=== PATIENT | female | born 1940 | race Caucasian/White ===

== ENCOUNTER → 2020-07-24 | Outpatient (CLI) | payer MEDICARE ==
[~2020-07-24] MED LIST: ACET325T26 PO; AMLO-150 PO; AMLO2.5T5 PO; AMPI3VIA IV; ENOX40SY4 SQ; FLUC200T4 PO; LEVO500T8 PO; LEVO50TA PO; LEVO50TA5 PO; METH12DI SQ; METR-90 PO; MICA100V4 IV; OXYC10TA6 PO; OXYC5TAB98 PO; SIMV20TA19 PO; TELM40TA7 PO; TELMISARTAN PO; TIZA4TAB2 PO
== END | disposition home or self-care (01) ==
LOC: RAD 12:56
PROVIDERS: ATTEND Surgery
DX: K57.30 Diverticulosis of large intestine without perforation or abscess without bleeding (principal); Z93.2 Ileostomy status
CPT/HCPCS: 74270

== ENCOUNTER → 2020-08-06 | Outpatient (CLI) | payer MEDICARE ==
[~2020-08-06] MED LIST changes: +CETI10TA76 PO; +POTA20TA6 PO; +TELM40TA PO
[2020-08-06 15:07] LABS: BASOPHILS % (AUTO) 1 % (0-1); EOSINOPHILS % (AUTO) 3 % (1-7); LYMPHOCYTES % (AUTO) 29 % (22-44); MEAN CORPUSCULAR HEMOGLOBIN 32.1 pg (27.0-34.8); MEAN CORPUSCULAR HGB CONC 33.2 g/dL (32.4-35.8); MEAN PLATELET VOLUME 8.7 fL (7.4-10.4); MONOCYTES % (AUTO) 7 % (2-9); NEUTROPHILS % (AUTO) 61 % (42-75); PLATELET COUNT 223 x10^3/uL (130-400); RED BLOOD COUNT 3.49 x10^6/uL (3.82-5.3)
[2020-08-06 15:18] LABS: ALANINE AMINOTRANSFERASE 36 U/L (12-78); ALBUMIN 3.4 g/dL (3.4-5.0); ANION GAP 7 mmol/L (5-15); CALCIUM 8.9 mg/dL (8.5-10.1); CHLORIDE 116 mmol/L (98-107); CREATININE 0.94 mg/dL (0.55-1.02)
[2020-08-06 15:21] LABS: ALKALINE PHOSPHATASE 131 U/L (45-117); BILIRUBIN,TOTAL 0.4 mg/dL (0.2-1.0); TOTAL PROTEIN 7.1 g/dL (6.4-8.2)
== END | disposition home or self-care (01) ==
LOC: STAR 14:13
PROVIDERS: ATTEND Surgery
DX: Z01.818 Encounter for other preprocedural examination (principal); Z43.2 Encounter for attention to ileostomy; I25.2 Old myocardial infarction; R94.31 Abnormal electrocardiogram [ECG] [EKG]; Z20.822 Contact with and (suspected) exposure to COVID-19
CPT/HCPCS: 36415; 80053; 85025; 93005; U0003; U0005

== ENCOUNTER 2020-08-11 06:59 | Inpatient (IN) | payer MEDICARE ==
[~2020-08-11] VITALS: Ht 149.9 cm; Wt 73.6 kg
[~2020-08-11 06:59] MED LIST changes: +POTA-143 PO; -POTA20TA6 PO
[2020-08-11] MEDS ORDERED: CHLORHEXIDINE 15 ML UDC PO ONE (08:00)
[2020-08-11] MEDS ORDERED: LACTATED RINGERS 1,000 ML IV SCH (08:00)
[2020-08-11] MEDS ORDERED: MIDAZOLAM 1 MG/ML, 2ML ONE (08:33)
[2020-08-11] MEDS ORDERED: FENTANYL PF 250 MCG/5ML ONE (08:34)
[2020-08-11] MEDS ORDERED: BUPIVACAINE/PF 0.25% ONE (08:38)
[2020-08-11] MEDS ORDERED: EPINEPHRINE 1 MG/ML, 1ML ONE (08:38)
[2020-08-11] MEDS ORDERED: LABETALOL 5MG/ML, 20ML IV PRN (09:00)
[2020-08-11] MEDS ORDERED: PROMETHAZINE 25 MG/ML, 1ML IVPush PRN (09:00)
[2020-08-11] MEDS ORDERED: hydrALAzine 20 MG/ML, 1ML IV PRN (09:00)
[2020-08-11] MEDS ORDERED: ONDANSETRON 2MG/ML, 2ML IVPush PRN (09:00)
[2020-08-11] MEDS ORDERED: METHOCARBAMOL 1,000 MG in DEXTROSE 5% 100 ML IV PRN (09:00)
[2020-08-11] MEDS ORDERED: OXYcodone 5 MG/5 ML ORAL.SOL UDC PO PRN (09:00)
[2020-08-11] MEDS ORDERED: MEPERIDINE/PF 25MG/0.5ML IVPush PRN (09:00)
[2020-08-11] MEDS ORDERED: EPHEDRINE 50 MG/ML, 1ML IVPush PRN (09:00)
[2020-08-11] MEDS ORDERED: ACETAMINOPHEN 325 MG TABLET PO PRN (09:00)
[2020-08-11] MEDS ORDERED: LORazepam 2 MG/ML, 1ML IVPush PRN (09:00)
[2020-08-11] MEDS ORDERED: HYDROmorphone 1 MG/ML, 1ML INJ IVPush PRN (09:00)
[2020-08-11] MEDS ORDERED: VASOPRESSIN 20 UNIT/ML, 1ML ONE (09:24)
[2020-08-11] MEDS ORDERED: EPINEPHRINE 1 MG/ML, 1ML INFIL ONE (09:58)
[2020-08-11] MEDS ORDERED: BUPIVACAINE/PF 0.5% INFIL ONE (09:58)
[2020-08-11] MEDS ORDERED: SUGAMMADEX 200 MG/2 ML IVPush ONE (10:58)
[2020-08-11] MEDS ORDERED: ACETAMINOPHEN 650 MG/20.3 ML UDC ONE (11:07)
[2020-08-11] MEDS ORDERED: FENTANYL PF 100 MCG/2ML ONE ×2 (11:07→11:50)
[2020-08-11] MEDS ORDERED: OXYcodone 5 MG/5 ML ORAL.SOL UDC ONE (11:08)
[2020-08-11] MEDS ORDERED: DEXAMETHASONE 4 MG/ML, 1ML ONE (11:17)
[2020-08-11] MEDS ORDERED: CEFAZOLIN 1,000 MG ONE (11:17)
[2020-08-11] MEDS ORDERED: ONDANSETRON 2MG/ML, 2ML ONE ×2 (11:17→11:39)
[2020-08-11] MEDS ORDERED: SUCCINYLCHOLINE 20 MG/ML, 10ML ONE (11:17)
[2020-08-11] MEDS ORDERED: PROPOFOL 10 MG/ML, 20ML ONE (11:17)
[2020-08-11] MEDS ORDERED: ROCURONIUM 10MG/ML,5ML ONE (11:17)
[2020-08-11] MEDS ORDERED: GLYCOPYRROLATE 0.2MG/1ML, 5ML ONE (11:17)
[2020-08-11] MEDS ORDERED: NEOSTIGMINE 1 MG/ML, 10ML ONE (11:17)
[2020-08-11] MEDS: FENTANYL PF 100 MCG/2ML IV PRN ×4 (11:20→12:57)
[2020-08-11 12:30] VITALS: BP 115/74
[2020-08-11] MEDS: KETOROLAC 30 MG/1 ML IV SCH ×2 (14:39→20:19)
[2020-08-11] MEDS: ACETAMINOPHEN 325 MG TABLET PO SCH ×2 (17:31→23:39)
[2020-08-11] MEDS: OXYcodone IR 5MG TABLET PO PRN ×2 (17:31→23:39)
[2020-08-11] MEDS: LACTATED RINGERS 1,000 ML IV SCH (18:45)
[2020-08-11 20:50] VITALS: BP 102/66
[2020-08-12 00:10] VITALS: BP 99/65
[2020-08-12] MEDS: KETOROLAC 30 MG/1 ML IV SCH ×4 (02:05→22:29)
[2020-08-12 03:55] VITALS: BP 96/63
[2020-08-12 05:34] LABS: BASOPHILS % (AUTO) 1 % (0-1); EOSINOPHILS % (AUTO) 2 % (1-7); LYMPHOCYTES % (AUTO) 20 % (22-44); MEAN CORPUSCULAR HEMOGLOBIN 32.2 pg (27.0-34.8); MEAN CORPUSCULAR HGB CONC 33.1 g/dL (32.4-35.8); MEAN PLATELET VOLUME 8.7 fL (7.4-10.4); MONOCYTES % (AUTO) 10 % (2-9); NEUTROPHILS % (AUTO) 67 % (42-75); PLATELET COUNT 176 x10^3/uL (130-400); RED BLOOD COUNT 2.75 x10^6/uL (3.82-5.3); RED CELL DISTRIBUTION WIDTH 14.1 % (9.6-15.2)
[2020-08-12 05:43] LABS: ANION GAP 4 mmol/L (5-15); CALCIUM 8.2 mg/dL (8.5-10.1); CHLORIDE 113 mmol/L (98-107); CREATININE 0.86 mg/dL (0.55-1.02)
[2020-08-12] MEDS: LEVOTHYROXINE 50 MCG TABLET PO SCH (05:47)
[2020-08-12] MEDS: ENOXAPARIN 40 MG/0.4 ML SQ SCH (05:47)
[2020-08-12] MEDS: OXYcodone IR 5MG TABLET PO PRN (05:47)
[2020-08-12] MEDS: ACETAMINOPHEN 325 MG TABLET PO SCH ×4 (05:47→23:50)
[2020-08-12 06:33] VITALS: BP 100/66
[2020-08-12 08:03] VITALS: BP 95/61
[2020-08-12] MEDS: LOSARTAN 50MG TABLET PO SCH (09:00)
[2020-08-12] MEDS: AMLODIPINE 2.5 MG TABLET PO SCH (09:00)
[2020-08-12] MEDS: LACTATED RINGERS 1,000 ML IV SCH (11:20)
[2020-08-12] MEDS: HYDROmorphone 2MG TABLET PO PRN ×4 (12:39→23:50)
[2020-08-12 12:50] VITALS: BP 103/65
[2020-08-12] MEDS ORDERED: CALCIUM CARBONATE 500 MG TAB.CHEW ONE (15:40)
[2020-08-12] MEDS: CALCIUM CARBONATE 500 MG TAB.CHEW PO PRN (15:44)
[2020-08-12 18:51] VITALS: BP 105/67
[2020-08-12] MEDS: ONDANSETRON 2MG/ML, 2ML IV PRN (20:58)
[2020-08-12] MEDS: FENTANYL PF 100 MCG/2ML IV PRN (20:58)
[2020-08-13] MEDS: LACTATED RINGERS 1,000 ML IV SCH (00:51)
[2020-08-13 01:26] VITALS: BP 93/60
[2020-08-13] MEDS: CALCIUM CARBONATE 500 MG TAB.CHEW PO PRN ×2 (02:48→08:19)
[2020-08-13] MEDS: HYDROmorphone 2MG TABLET PO PRN (03:37)
[2020-08-13] MEDS: ONDANSETRON 2MG/ML, 2ML IV PRN ×2 (03:37→08:50)
[2020-08-13] MEDS: KETOROLAC 30 MG/1 ML IV SCH ×2 (03:37→10:13)
[2020-08-13 05:48] LABS: BASOPHILS % (AUTO) 0 % (0-1); EOSINOPHILS % (AUTO) 2 % (1-7); LYMPHOCYTES % (AUTO) 12 % (22-44); MEAN CORPUSCULAR HGB CONC 33.4 g/dL (32.4-35.8); MEAN PLATELET VOLUME 9.1 fL (7.4-10.4); MONOCYTES % (AUTO) 12 % (2-9); NEUTROPHILS % (AUTO) 75 % (42-75); PLATELET COUNT 192 x10^3/uL (130-400); RED BLOOD COUNT 2.93 x10^6/uL (3.82-5.3); RED CELL DISTRIBUTION WIDTH 13.9 % (9.6-15.2)
[2020-08-13] MEDS: ACETAMINOPHEN 325 MG TABLET PO SCH (06:06)
[2020-08-13] MEDS: LEVOTHYROXINE 50 MCG TABLET PO SCH (06:06)
[2020-08-13] MEDS: ENOXAPARIN 40 MG/0.4 ML SQ SCH (06:07)
[2020-08-13 07:12] VITALS: BP 99/62
[2020-08-13] MEDS: LOSARTAN 50MG TABLET PO SCH (08:20)
[2020-08-13] MEDS: AMLODIPINE 2.5 MG TABLET PO SCH (08:20)
[2020-08-13] MEDS ORDERED: HYDR2TAB29 PO (09:37)
[2020-08-13 13:00] VITALS: BP 113/74
== END 2020-08-13 13:04 | disposition home health service (06) | DRG 331 ==
LOC: ORIP 06:59 → EDSTATUS 09:15 → 4NE 12:25
PROVIDERS: ADMIT Surgery; ATTEND Surgery
PROC: 0DNW0ZZ Release Peritoneum, Open Approach (ICD-10-PCS; 2020-08-11)
PROC: 0DSB0ZZ Reposition Ileum, Open Approach (ICD-10-PCS; principal; 2020-08-11 09:15)
DX: Z43.2 Encounter for attention to ileostomy (principal); K66.0 Peritoneal adhesions (postprocedural) (postinfection); I10 Essential (primary) hypertension; E03.9 Hypothyroidism, unspecified
CPT/HCPCS: 36415; 80048; 85025; 86850; 86900; 88304; G0378; J0171; J0690; J1100; J1650; J1885; J2250; J2405; J2704; J2710; J3010; J0330; J2800; J7120